=== PATIENT | female | born 1985 | race Caucasian/White ===

== ENCOUNTER → 2020-04-14 09:53 | Outpatient (BNVA) | payer OTHER, SELFPAY | PROVIDERS: PCP Internal Medicine; Visit Provider Physician Assistant | DX: Z76.89 Persons encountering health services in other specified circumstances (principal) ==

== ENCOUNTER → 2020-04-20 08:57 | Outpatient (BNVA) | payer OTHER, SELFPAY | PROVIDERS: PCP Internal Medicine; Visit Provider Physician Assistant | DX: Z76.89 Persons encountering health services in other specified circumstances (principal) ==

== ENCOUNTER → 2020-04-25 12:42 | Outpatient (BNVA) | payer OTHER, SELFPAY | PROVIDERS: PCP Internal Medicine; Visit Provider Dietitian, Registered | DX: Z76.89 Persons encountering health services in other specified circumstances (principal) ==

== ENCOUNTER → 2020-04-27 08:12 | Outpatient (BNVA) | payer OTHER, SELFPAY | PROVIDERS: PCP Internal Medicine; Visit Provider Surgery | DX: Z76.89 Persons encountering health services in other specified circumstances (principal) ==

== ENCOUNTER 2020-04-28 11:07 | Outpatient (REF) | payer OTHER, SELFPAY ==
[2020-04-28 12:23] LABS: MANUAL DIFF FLAG NO
[2020-04-28 12:30] LABS: Basophils Absolute Auto 0.1 X10*3/uL (0.0-0.2); Basophils Percent Auto 1.2 % (0-2); Eosinophils Absolute Auto 0.2 X10*3/uL (0.0-0.4); Eosinophils Percent Auto 3.2 % (0-4); Hematocrit 32.9 % (37-47); Imm Gran Abs Auto 0.01 X10*3/uL (0.00-0.03); Imm Gran Pct Auto 0.2 % (0.0-0.4); Lymphocytes Absolute Auto 1.9 X10*3/uL (1.2-4.9); Lymphocytes Percent Auto 37.5 % (20-40); Mean Corpuscular HGB Conc 30.4 g/dl (31.0-35.0); Mean Corpuscular Hemoglobin 22.5 pg (27.0-33.0); Mean Corpuscular Volume 73.9 fL (80-98); Mean Platelet Volume 9.9 fL (9.4-12.3); Monocytes Absolute Auto 0.4 X10*3/uL (0.1-1.2); Monocytes Percent Auto 7.8 % (2-11); Neutrophils Absolute Auto 2.5 X10*3/uL (2.0-8.3); Neutrophils Percent Auto 50.1 % (45-73); Platelet Count 390 X10*3/uL (160-400); Red Blood Count 4.45 X10*6/uL (4.20-5.50); Red Cell Distribution Width 16.3 % (11.0-16.0)
[2020-04-28 12:35] LABS: INTERNATIONAL NORM RATIO 1.1 (0.9-1.1); Prothrombin Time 13.4 SEC (10.8-13.0)
[2020-04-28 12:38] LABS: Partial Thromboplastin Time 34.6 SEC (24.1-38.0)
[2020-04-28 13:01] LABS: Alanine Aminotransferase 6 U/L (0-31); Albumin Level 4.2 g/dL (3.5-5.0); Alkaline Phosphatase 79 U/L (39-117); Anion Gap 13 (12-20); Aspartate Amino Transferase 11 U/L (5-31); Bilirubin Total 0.8 mg/dL (0.0-1.0); Blood Urea Nitrogen 8 mg/dL (9-16); C Reactive Protein 0.61 mg/dL (< or = 0.50); Calcium 8.8 mg/dL (8.4-10.2); Carbon Dioxide 25 mmol/L (22-29); Chloride 104 mmol/L (96-108); Cholesterol 187 mg/dL; Estimated Glomerular Filt Rate > 60; Glucose Random 77 mg/dL (60-115); HDL Cholesterol 46 mg/dL; LDL Cholesterol Calculated 128 mg/dl; Potassium 4.3 mmol/l (3.3-5.1); Sodium 138 mmol/L (135-145); Total Protein 7.5 g/dL (6.5-8.0); Triglycerides 65 mg/dL
[2020-04-28 13:13] LABS: Estimated Average Glucose 114 mg/dL; Hemoglobin A1c % 5.6 %
[2020-04-28 13:22] LABS: TSH reflex Free T4 0.87 mIU/mL (0.32-4.0)
[2020-05-02 14:56] LABS: Insulin Level Total 8.4 uIU/mL
== END 2020-04-28 11:08 | disposition home or self-care (01) ==
LOC: HO.LAB 11:07
PROVIDERS: PCP Internal Medicine; Visit Provider Surgery
DX: E66.9 Obesity, unspecified (principal); R73.03 Prediabetes; Z68.39 Body mass index [BMI] 39.0-39.9, adult
CPT/HCPCS: 36415; 80053; 80061; 83036; 83525; 84443; 85025; 85610; 85730; 86140

== ENCOUNTER → 2020-04-29 11:55 | Outpatient (BNVA) | payer OTHER, SELFPAY | PROVIDERS: PCP Internal Medicine; Visit Provider Physician Assistant | DX: Z76.89 Persons encountering health services in other specified circumstances (principal) ==

== ENCOUNTER 2020-05-05 05:42 | Inpatient (IN) | payer OTHER, SELFPAY ==
[2020-04-29 09:03] VITALS: BMI 38.1
--- NOTE | 2020-05-02 15:09 | HO.ANESPROP2 ---
Documented by User: Shelly Early 05/02/20 15:15 HPI - Anesthesia Eval Consult details Narrative: 35yo F for lap sleeve gastrectomy PMFSH Past Medical History Medical History Anemia Obesity Prediabetes Family History Family History (Updated 04/26/20 @ 10:40 by [place] Brooke [facility]) Father No problems noted. Mother HTN (hypertension) Anemia Brother No problems noted. Sister No problems noted. Sister No problems noted. Daughter No problems noted. Daughter No problems noted. 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 If so, by whom?: No [facility] Practices: no barriers to surgery or hospitalization Advance Directives: No Advance Directives Information Provided: No Advance Directives on File: No Recently lost weight without trying: No Meds Allergies Allergy/AdvReac Type Severity Reaction Status Date / Time Sulfa Allergy Mild itching Uncoded 05/05/20 06:22 Home Medications Medication Instructions Recorded Confirmed Type acetaminophen 650 mg PO Q6H PRN 04/29/20 04/29/20 History ibuprofen 600 mg PO QID PRN 04/29/20 04/29/20 History Exam Exam Date and Time: May 02, 2020 1509 Height,Weight and Vital Signs: Height 5 ft 5 in Weight 103.873 kg Pertinent Lab Results Pertinent Lab Results: Laboratory Tests 04/28/20 11:33 Blood Type A Positive Antibody Screen NEGATIVE Laboratory Tests 04/28/20 04/28/20 04/28/20 11:33 11:33 11:33 WBC 5.0 Hgb 10.0 L Hct 32.9 L Plt Count 390 PT 13.4 H INR 1.1 APTT 34.6 Sodium 138 Potassium 4.3 Chloride 104 Carbon Dioxide 25 BUN 8 L Creatinine 0.91 Hemoglobin A1c % Total Bilirubin 0.8 AST 11 ALT 6 Alkaline Phosphatase 79 C-Reactive Protein 0.61 H Total Protein 7.5 Albumin 4.2 04/28/20 11:33 WBC Hgb Hct Plt Count PT INR APTT Sodium Potassium Chloride Carbon Dioxide BUN Creatinine Hemoglobin A1c % 5.6 Total Bilirubin AST ALT Alkaline Phosphatase C-Reactive Protein Total Protein Albumin Narrative Narrative: EKG 12/28/19: [id number]@65 Assessment and Plan Assessment Anesthesia Assessment: Chart Reviewed Documented by User: Yolande Celaya 05/05/20 07:34 [facility] Past Medical History Medical History Anemia Obesity Prediabetes Family History Family History (Updated 04/26/20 @ 10:40 by [place] Brooke [facility]) Father No problems noted. Mother HTN (hypertension) Anemia Brother No problems noted. Sister No problems noted. Sister No problems noted. Daughter No problems noted. Daughter No problems noted. 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 If so, by whom?: No [facility] Practices: no barriers to surgery or hospitalization Advance Directives: No Advance Directives Information Provided: No Advance Directives on File: No Recently lost weight without trying: No Meds Allergies Allergy/AdvReac Type Severity Reaction Status Date / Time Sulfa Allergy Mild itching Uncoded 05/05/20 06:22 Home Medications Medication Instructions Recorded Confirmed Type acetaminophen 650 mg PO Q6H PRN 04/29/20 04/29/20 History ibuprofen 600 mg PO QID PRN 04/29/20 04/29/20 History Exam Height,Weight and Vital Signs: Vital Signs Temp Pulse Resp BP Pulse Ox 05/05/20 06:33 97.7 F 89 16 127/82 99 Airway Mallampati Class: II TM Dist: >3cm Neck ROM: Full Loose/Missing/Broken Teeth: No (Bliss intact) Heart: RRR Lungs: CTAB Assessment and Plan Assessment Anesthesia Assessment: Anesthesia Plan Discussed and Chart Reviewed Final Anesthetic Review NPO: Yes ASA Class: III Final Preanesthetic Review: No Changes in Pt Med Stat, Meds/Allgs Chart Reviewed and Consent Obtained/Reviewed Patient Risk: Intermediate Procedure Risk: Intermediate Anesthetic Plan Anesthetic Plan: GA Disposition: Standard PACU and Inp. Admit - Standard Bed
[2020-05-05] VITALS (18 sets, daily range): BP systolic 123–149; BP diastolic 68–89; PULSE 62–93; RESP 12–19; TEMP 36–36.5; O2SAT 94–100
--- NOTE | 2020-05-05 05:52 | MHC.SHP ---
Pre-Procedural Eval Section A The patient is an INPATIENT: Yes The History & Physical has been completed within 30 days and I have reviewed it.: Yes Section B Chief Complaint: S/p Sleeve gastrectomy Relevant Family History (Specify if Yes): No Relevant Social History: None Present Medications: see Short Stay Collaborative assessment Allergies: Allergies Allergy/AdvReac Type Severity Reaction Status Date / Time Sulfa Allergy Unknown itching Uncoded 12/14/19 00:00 Review of Systems Sugical H&P ROS: Negative: Constitution, Cardiovascular, Respiratory, Neurological, Psychiatric, Hem-Onc, Allergic/Immunologic, Gastrointestinal, Genitourinary, Musculoskeletal, Integumentary, Endocrine and Eyes/Ears/Nose/Throat Exam Surgical H&P Exam: Normal: HEENT, Normal: Heart, Normal: Lungs, Normal: Extremities, Normal: Abdomen, Normal: Skin and Normal: Neurological Plan Diagnosis/Plan: Unchanged Patient has been examined and remains a candidate for the planned procedure
[2020-05-05] MEDS: Lactated Ringers 1,000 ML 100 ML IVCONT ×2 (06:55→13:18)
[2020-05-05 07:02] LABS: SARS COV2 PCR INHOUSE NEGATIVE (Negative)
[2020-05-05] MEDS: Lactated Ringers 1,000 ML 999 ML IVCONT (07:30)
[2020-05-05] MEDS: ceFAZolin Sodium/Dextrose,Iso 2 GM/50 ML PIGGYBACK IV ×2 (07:30→13:23)
--- NOTE | 2020-05-05 09:58 | P.BOP_ITS ---
Brief Operative Note Date of procedure: 05/05/20 Pre-op diagnosis: Severe obesity with comorbidities Post-op diagnosis: same (& abdominal congenital adhesions) Procedure: INITIAL PATIENT BMI ON PRESENTATION AT OUR OFFICE: 43.76 kg/m2 LAST BMI BEFORE SURGERY: 39.3 kg/m2 COMORBIDITIES: Prediabetes, GERD, liver steatosis, knee pain The patient participated in an intensive weekly lifestyle intervention and exercise program during which the patient has lost between the initial office visit and the last preoperative visit 21.2 lbs, or 8.34% of initial actual body weight. The patient met the BMI-criteria for bariatric surgery based on the BMI on initial presentation. The patient should not be penalized for achieving such weight loss because it is not sustainable long-term without surgical intervention and it was achieved in preparation for bariatric surgery under my direction and based on my published research ([email or web address] and [email or web address]) that a 10% preoperative weight loss improves long-term weight loss after surgery and reduces perioperative complications. Insurance carriers such as [facility] have endorsed my recommendations and have included in their policies criteria to include a 10% preoperative weight loss requirement. PROCEDURE: Esophago-gastroscopy, laparoscopic lysis of adhesions, laparoscopic sleeve gastrectomy and laparoscopic gastropexy INDICATIONS: This is a 49 year-old female who was electively scheduled for laparoscopic, possibly open sleeve gastrectomy. The risks and complications of the procedure were discussed with the patient in advance, particularly the possibility of ; pulmonary embolism; staple line leak; bleeding; GERD; cardiac, pulmonary, or renal complications; as well as long-term problems such as insufficient weight loss, vitamin deficiency, strictures, or ulcers. The patient understood all the risks, and was in agreement to proceed with surgery. DESCRIPTION OF PROCEDURE: After informed consent was obtained from the patient, the patient was given preoperative antibiotics, and was transferred to the operating room. After successful induction of general anesthesia, pneumatic compressive devices were placed on both lower extremities. An upper endoscopy was performed next. The oropharynx and esophagus appeared to be within normal limits. There was no diaphragmatic hernia present consistent with the findings of the preoperative upper GI. The stomach was entered. Then after all fluid and air were suctioned and the stomach was fully decompressed, the scope was withdrawn and secured in the mid esophagus. The patient was then prepped and draped in the usual sterile manner, and abdominal access was established at the right upper quadrant with the Connie technique. A 12 mm blunt port was inserted, and the abdomen was insufflated with CO2 to a pressure of 15 mmHg. Under direct visualization, additional ports were placed, specifically two 5 mm Versi-step ports to the left upper quadrant, and a 5 mm Versi-Step port to the right upper quadrant. 1% lidocained plan was used to infiltrate all port sites as well as all fascia defects. Following that, the patient was placed in a steep reverse Trendelenburg position. An additional 5 mm port was placed to the right flank for the Mediflex retractor that was used to retract the left lobe of the liver. The gastro-esophageal fat pad was opened with the ultrasonic device (Thunderbeat, Olympus) and the anterior esophagus and hiatus were exposed. The angle of His was opened with the ultrasonic device the fundus of the stomach from any diaphragmatic and splenic attachments. I then opened the gastrocolic ligament between the transverse colon and the greater curvature of the stomach with the ultrasonic device to enter the lesser sac and facilitate the ligation of the short gastric vessels. I started at a mid-point along the greater curvature and using the Thunderbeat, all short gastric vessels were divided all the way to the angle of His until the left katie was completely dissected at its entirety. I then divided the gastro-colic ligament distally to a distance of about 3-4 cm proximal to the esophagus. There were extensive congenital adhesions between the pancreas and posterior gastric wall. Those were lysed completely with the ultrasonic device. Adhesiolysis took approximately 45 min to complete. The stomach was then divided transversely with one Endo EVELYN-45 purple load and five EVELYN-60 articulating orange loads using the AEON stapler and loads. Every effort was made that the gastric sleeve had a tubular shape and an even caliber throughout. Once the sleeve resection was completed, the staple line of the gastric sleeve was reinforced with Hemoclips. The resected stomach was retrieved without difficulty from the Connie port. A gastropexy was then performed in order to prevent postoperative GERD and partial gastric volvulus. Several interrupted 2.0 Surgidac sutures were placed between the sleeve's staple line and the previously divided greater omentum and gastro-colic ligament using the Endo-Stitch device. An upper endoscopy was performed. There was no narrowing at the GE junction. The scope was easily advanced all the way to the pylorus which was clearly visualized. There was no narrowing anywhere and the sleeve's caliber was even throughout. The sleeve's staple line was inspected and there was no evidence of ischemia, bleeding or dehiscence. At that point the gastroscope was withdrawn from the patient?s mouth while we were decompressing the bowel and the stomach from any remaining air. I looked into the lesser sac to see how the sleeve was situating and it was situating well. There was no bleeding from the staple line, spleen, or short gastric vessels. The Mediflex retractor was removed, and the undersurface of the liver was inspected and there was no bleeding. The patient was placed in supine position. I closed the fascial defect of the 12 mm port site with a figure of eight #1 Polysorb suture. Then 100 cc 0.25 % Marcaine plain with 10 mg of Dexamethasone were used to infiltrate the fascial closure as well as all skin incisions. At this point, the abdomen was deflated, all ports were removed under direct vision, and no bleeding was noted from any of the port sites. The skin incisions were irrigated with saline and were closed with 4-0 absorbable monofilament sutures. Steri-Strips and OpSites were used to cover all incisions. The patient was extubated and was transferred in stable condition to the recovery room for further care. I was present and performed all negron parts of the procedure. Ms. Godoy was the salon shampoo assistant. There were no residents to assist with this case. Please send copy of the operative report to Dr. Rogers. Todd Sullivan MD, PhD, FACS Surgeon: Luciano Sullivan MD Anesthesia: GETA, local and other (TAP block) Habilitative Interventionist: Arti Godoy Estimated blood loss (mL): 10 IV fluids (mL): 2,500 Urine output (mL): 0 (No Tony to record) Pathology: other (Stomach) Condition: stable Disposition: PACU
--- NOTE | 2020-05-05 10:09 | PM.PNGS ---
Subjective Subjective Interval history: Patient has mild incisional pain. Was able to ambulate and use the incentive spirometer. Did not have much fluids by mouth yet. Physical Exam Vital Signs: Vital Signs: Vital Signs Temp Pulse Resp BP Pulse Ox 05/05/20 10:02 84 16 149/89 H 100 05/05/20 09:57 68 16 144/89 H 100 05/05/20 09:52 72 16 134/80 05/05/20 09:47 96.9 F 79 12 126/68 100 05/05/20 06:33 97.7 F 89 16 127/82 99 Body Mass Index 38.1 GI: Inspection: Yes normal to inspection and Yes incision (clean, dry and intact) Extrem: Right lower extremity: normal to inspection (no calf tenderness) Left lower extremity: normal to inspection (no calf tenderness) Progress Note: A&P Assessment and plan (1) BMI 39.0-39.9,adult: Status: Acute (2) Prediabetes: Status: Acute (3) Obesity: Status: Acute Assessment and Plan: 35 year old female was admitted 05/05/20 with morbid obesity and comorbidities. Problem 1: s/p laparoscopic sleeve gastrectomy, gastropexy and lysis of adhesions Status: Doing well. Labs OK Plan: Will continue phase 1 bariatric diet and discharge later today. (4) S/P laparoscopic sleeve gastrectomy: Status: Acute (5) Congenital intra-abdominal adhesions: Status: Acute (6) Steatosis, liver: Status: Inactive (7) GERD (gastroesophageal reflux disease): Status: Acute (8) Knee pain: Status: Acute Fall Risk Details Current Medications: Current Medications Generic Name Dose Route Start Last Admin Trade Name Freq PRN Reason Stop Dose Admin Famotidine 20 mg 05/05/20 10:00 Famotidine/Pf 20 Mg/2 Ml Vial IVPUSH BID TAYLOR Fentanyl 25 mcg 05/05/20 07:56 Fentanyl Citrate/Pf 100 Mcg/2 Ml Vial IVPUSH Q5M PRN Pain, Moderate (Pain Scale 4-6 Hydromorphone HCl 0.25 mg 05/05/20 07:56 Hydromorphone Hcl 0.5 Mg/0.5 Ml Syringe IVPUSH Q5M PRN Pain, Severe (Pain Scale 7-10) Hydromorphone HCl 0.25 mg 05/05/20 09:46 Hydromorphone Hcl 0.5 Mg/0.5 Ml Syringe IVPUSH Q4H PRN Pain, Moderate (Pain Scale 4-6 Lactated Ringer's 1,000 mls @ 100 mls/hr 05/05/20 06:00 05/05/20 06:55 Lr IVCONT 100 mls/hr .Q10H TAYLOR Administration Promethazine HCl 6.25 mg/ 50.25 mls @ 201 mls/hr 05/05/20 07:56 Sodium Chloride IV ONCE PRN Nausea and Vomiting Lactated Ringer's 1,000 mls @ 150 mls/hr 05/05/20 10:00 Lr IVCONT .Q6H40M TAYLOR Cefazolin Sodium/Dextrose 2 gm in 50 mls @ 100 mls/hr 05/05/20 13:30 Ancef IV 05/05/20 13:59 POSTOP ONE Acetaminophen 1,000 mg in 100 mls @ 400 mls/hr 05/05/20 10:00 Ofirmev IV Q6H [facility] Metoclopramide HCl 10 mg 05/05/20 09:46 Metoclopramide Hcl 10 Mg/2 Ml Vial IVPUSH Q6H PRN Nausea Ondansetron HCl 4 mg 05/05/20 07:56 Ondansetron Hcl 4 Mg/2 Ml Vial IVPUSH ONCE PRN Nausea and Vomiting Ondansetron HCl 4 mg 05/05/20 10:00 Ondansetron Hcl 4 Mg/2 Ml Vial IVPUSH Q4H [facility] Sodium Chloride 3 ml 05/05/20 16:00 0.9 % Sodium Chloride Flush 3 Ml Syringe IVFLUSH QSHIFT [facility] Time Spent With Patient Time: Total time spent is greater than 50% in coordination of care (as documented) at patient's floor/unit and/or counseling patient: Time with patient: less than 15 minutes
[2020-05-05 11:05] LABS: Hemoglobin 9.3 g/dl (12.0-16.0)
[2020-05-05 11:28] LABS: Anion Gap 15 (12-20); Blood Urea Nitrogen 8 mg/dL (9-16); Calcium 7.9 mg/dL (8.4-10.2); Carbon Dioxide 24 mmol/L (22-29); Chloride 105 mmol/L (96-108); Creatinine Clr Calc Pharmacy 97.9; Estimated Glomerular Filt Rate > 60; Glucose Random 144 mg/dL (60-115); Potassium 3.8 mmol/l (3.3-5.1); Sodium 140 mmol/L (135-145)
[2020-05-05] MEDS: fentaNYL citrate/PF 100 MCG/2 ML VIAL 25 MCG IVPUSH ×2 (11:50→11:55)
[2020-05-05] MEDS: Famotidine/PF 20 MG/2 ML VIAL IVPUSH ×2 (11:58→21:50)
[2020-05-05] MEDS: ondansetron HCL 4 MG/2 ML VIAL IVPUSH ×3 (13:23→21:49)
[2020-05-05] MEDS: Lactated Ringers 1,000 ML 150 ML IVCONT ×2 (13:28→21:51)
[2020-05-06 03:42] VITALS: BP 126/77; PULSE 76; RESP 16; TEMP 35.9; O2SAT 98
[2020-05-06] MEDS: ondansetron HCL 4 MG/2 ML VIAL IVPUSH ×2 (05:52→10:44)
[2020-05-06] MEDS: Lactated Ringers 1,000 ML 150 ML IVCONT (05:55)
[2020-05-06 06:17] LABS: MANUAL DIFF FLAG NO
[2020-05-06 06:39] LABS: Basophils Percent Auto 0.2 % (0-2); Imm Gran Abs Auto 0.03 X10*3/uL (0.00-0.03); Imm Gran Pct Auto 0.4 % (0.0-0.4); Lymphocytes Absolute Auto 1.6 X10*3/uL (1.2-4.9); Mean Corpuscular HGB Conc 29.6 g/dl (31.0-35.0); Mean Corpuscular Hemoglobin 22.2 pg (27.0-33.0); Mean Platelet Volume 9.9 fL (9.4-12.3); Monocytes Absolute Auto 0.6 X10*3/uL (0.1-1.2); Monocytes Percent Auto 7.5 % (2-11); Neutrophils Absolute Auto 6.2 X10*3/uL (2.0-8.3); Neutrophils Percent Auto 72.9 % (45-73); Platelet Count 326 X10*3/uL (160-400); Red Cell Distribution Width 16.5 % (11.0-16.0); White Blood Count 8.6 X10*3/uL (4.8-10.8)
[2020-05-06 06:55] LABS: Anion Gap 13 (12-20); Blood Urea Nitrogen 7 mg/dL (9-16); Calcium 8.1 mg/dL (8.4-10.2); Carbon Dioxide 24 mmol/L (22-29); Chloride 108 mmol/L (96-108); Creatinine Clr Calc Pharmacy 115.1; Estimated Glomerular Filt Rate > 60; Glucose Random 90 mg/dL (60-115); Potassium 4.4 mmol/l (3.3-5.1); Sodium 141 mmol/L (135-145)
[2020-05-06 07:29] VITALS: BP 125/70; PULSE 65; RESP 17; TEMP 36; O2SAT 100
[2020-05-06] MEDS: Famotidine/PF 20 MG/2 ML VIAL IVPUSH (10:44)
[2020-05-06 11:27] VITALS: BP 117/69; PULSE 62; RESP 19; TEMP 36.3; O2SAT 100
--- NOTE | 2020-05-06 12:26 | MHC.CM.PN ---
NURSE LANGUAGE TEACHER NOTE - ELECTRONICDI RECORD REVIEWED ALONG WITH CASE DISCUSSED WITH TUCKER GLOVER . 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
--- NOTE | 2020-05-06 13:44 | HO.POSTANES ---
Post Anesthesia Evaluation Post Anesthesia Evaluation Vital Signs: Vital Signs Temp Pulse Resp BP Pulse Ox 05/06/20 11:27 97.3 F 62 19 117/69 100 05/06/20 07:29 96.8 F 65 17 125/70 100 05/06/20 03:42 96.7 F L 76 16 126/77 98 Anesthesia: General Endotracheal-GETA Mental Status: Awake Pain Control: Satisfactory Nausea/Vomiting: None Hydration: Adequate Anesthesia-Related Issues: No Anes. Related Issues
--- NOTE | 2020-06-29 13:23 | PM.DS ---
DS: Providers Provider Date of admission: 05/05/20 05:42 Primary care physician: Nahed Rogers MD DS: Diagnosis Discharge Diagnosis (1) BMI 39.0-39.9,adult: Status: Acute (2) Prediabetes: Status: Acute (3) Obesity: Status: Acute (4) S/P laparoscopic sleeve gastrectomy: Status: Acute Problem details: 05/05/2020 (5) Congenital intra-abdominal adhesions: Status: Acute (6) Steatosis, liver: Status: Inactive (7) GERD (gastroesophageal reflux disease): Status: Acute (8) Knee pain: Status: Acute DS: Medications Discharge Medications Home Medications: Home Medications Medication Instructions Recorded Confirmed acetaminophen 650 mg PO Q6H PRN 04/29/20 04/29/20 Previous Rx's Medication Instructions Recorded ondansetron HCl 4 mg tablet 4 mg PO Q8H PRN #30 tab 04/27/20 pantoprazole 40 mg tablet,delayed 40 mg PO DAILY #30 tab 04/27/20 release sucralfate 100 mg/mL oral 10 ml PO BID #420 ml 04/27/20 suspension DS: Summary Time Spent with Patient Time attestation: Total time spent providing and/or coordinating discharge services: Physical Exam Vital Signs: Vital Signs: Last Vital Signs Temp 97.3 F 05/06/20 11:27 Pulse 62 05/06/20 11:27 Resp 19 05/06/20 11:27 BP 117/69 05/06/20 11:27 Pulse Ox 100 05/06/20 11:27 Body Mass Index 38.1 DS: Data Data Completed and Pending Completed studies during hospitalization [Text1]: Pending at discharge 05/05/20 08:34 Surgical [PTH] Routine Procedures Excision of Stomach, Percutaneous Endoscopic Approach, Vertical (05/05/20) Release Peritoneum, Percutaneous Endoscopic Approach (05/05/20) Labs on day of discharge: 04/28/20 11:33 Type and Screen Routine 05/05/20 05:40 SARS COV2 PCR INHOUSE Stat 05/05/20 05:53 Acetaminophen [Ofirmev] 1,000 mg in 100 ml IVPB PREOP 05/05/20 06:00 Lactated Ringers [Lr] 1,000 ml IVCONT 100 mls/hr 05/05/20 06:06 Acetaminophen [Ofirmev] 1,000 mg in 100 ml IV PREOP 05/05/20 07:08 dexAMETHasone Sod Phosphate/PF [Decadron] 10 mg .ROUTE .STK-MED ONE 05/05/20 07:09 Bupivacaine MPF 0.25 % [Sensorcaine-MPF 0.25% 10 ML] 10 ml .ROUTE .STK-MED ONE Lidocaine HCl 1 % MPF [Xylocaine 1 % MPF] 5 ml .ROUTE .STK-MED ONE 05/05/20 07:18 Ketamine HCl/NS 50 mg IVPUSH .STK-MED ONE Lidocaine HCl 2 % MPF [Xylocaine 2 % MPF] 5 ml .ROUTE .STK-MED ONE Midazolam HCl/PF [Versed] 2 mg IVPUSH .STK-MED ONE Rocuronium [place] [Zemuron] 100 mg IV .STK-MED ONE Succinylcholine Chloride [Quelicin] 100 mg IVPUSH .STK-MED ONE fentaNYL citrate/PF [Sublimaze] 50 mcg .ROUTE .STK-MED ONE propofoL [Diprivan] 200 mg IVPUSH .STK-MED ONE 05/05/20 07:25 ceFAZolin Sodium/Dextrose,Iso [Ancef] 2 gm in 50 ml IV PREOP 05/05/20 07:29 ceFAZolin Sodium/Dextrose,Iso [Ancef] 2 gm in 50 ml .ROUTE As directed 05/05/20 07:30 Lactated Ringers [Lr] 1,000 ml IVCONT 999 mls/hr 05/05/20 07:35 Continuous pulse oximetry CONT Vital Signs Q1H Vital Signs Q5MIN 05/05/20 07:37 Oxygen administration Nasal Cannula 2 lpm 05/05/20 07:46 dexAMETHasone sod phosphate [Decadron] 4 mg .ROUTE .STK-MED ONE ondansetron HCL [Zofran] 4 mg .ROUTE .STK-MED ONE 05/05/20 07:56 HYDROmorphone HCl [Dilaudid] 0.25 mg IVPUSH Q5M PRN Promethazine HCL [Phenergan] 6.25 mg 0.9 % Sodium Chloride [Ns] 50 ml IV ONCE fentaNYL citrate/PF [Sublimaze] 25 mcg IVPUSH Q5M PRN ondansetron HCL [Zofran] 4 mg IVPUSH ONCE PRN 05/05/20 07:58 propofoL [Diprivan] 200 mg IVPUSH .STK-MED ONE 05/05/20 08:09 HYDROmorphone HCl [Dilaudid] 2 mg .ROUTE .STK-MED ONE 05/05/20 08:24 Phenylephrine HCL 1,000 mcg IVPUSH .STK-MED ONE 05/05/20 08:34 Surgical [PTH] Routine 05/05/20 08:35 Sugammadex Sodium [Bridion] 200 mg IVPUSH .STK-MED ONE 05/05/20 09:46 Ambulate Q4H WHILE AWAKE Compression Therapy QSHIFT Head of bed elevation DIRECTED Incentive Spirometry Q1HR WHILE AWAKE Intake and Output Q4HR Code Status Routine HYDROmorphone HCl [Dilaudid] 0.25 mg IVPUSH Q4H PRN Metoclopramide HCl [Reglan] 10 mg IVPUSH Q6H PRN 05/05/20 09:47 Vital Signs Q4H 05/05/20 09:48 Apply Abdominal Binder TOLERATED 05/05/20 Breakfast NPO Diet Acetaminophen [Ofirmev] 1,000 mg in 100 ml IV Q6H Famotidine/PF [Pepcid/PF] 20 mg IVPUSH BID Lactated Ringers [Lr] 1,000 ml IVCONT 150 mls/hr ondansetron HCL [Zofran] 4 mg IVPUSH Q4H 05/05/20 10:50 Basic Metabolic Panel Stat Hemoglobin and Hematocrit Stat 05/05/20 11:48 Famotidine/PF [Pepcid/PF] 20 mg IVPUSH .[facility] ONE fentaNYL citrate/PF [Sublimaze] 100 mcg .ROUTE .STK-MED ONE 05/05/20 13:30 ceFAZolin Sodium/Dextrose,Iso [Ancef] 2 gm in 50 ml IV POSTOP 05/05/20 16:00 0.9 % Sodium Chloride Flush [NS Flush] 3 ml IVFLUSH QSHIFT 05/06/20 06:00 Basic Metabolic Panel DAILY@0600 Complete Blood Count Auto Diff DAILY@0600 Laboratory Last Values WBC 8.6 X10*3/uL (4.8-10.8) 05/06/20 06:00 RBC 3.60 X10*6/uL (4.20-5.50) L 05/06/20 06:00 Hgb 8.0 g/dl (12.0-16.0) L 05/06/20 06:00 Hct 27.0 % (37-47) L 05/06/20 06:00 MCV 75.0 fL (80-98) L 05/06/20 06:00 MCH 22.2 pg (27.0-33.0) L 05/06/20 06:00 MCHC 29.6 g/dl (31.0-35.0) L 05/06/20 06:00 RDW 16.5 % (11.0-16.0) H 05/06/20 06:00 Plt Count 326 X10*3/uL (160-400) 05/06/20 06:00 MPV 9.9 fL (9.4-12.3) 05/06/20 06:00 Immature Gran % (Auto) 0.4 % (0.0-0.4) 05/06/20 06:00 Neut % (Auto) 72.9 % (45-73) 05/06/20 06:00 Lymph % (Auto) 19.0 % (20-40) L 05/06/20 06:00 [place] % (Auto) 7.5 % (2-11) 05/06/20 06:00 Eos % (Auto) 0.0 % (0-4) 05/06/20 06:00 Baso % (Auto) 0.2 % (0-2) 05/06/20 06:00 Lymph # (Auto) 1.6 X10*3/uL (1.2-4.9) 05/06/20 06:00 [place] # (Auto) 0.6 X10*3/uL (0.1-1.2) 05/06/20 06:00 Eos # (Auto) 0.0 X10*3/uL (0.0-0.4) 05/06/20 06:00 Baso # (Auto) 0.0 X10*3/uL (0.0-0.2) 05/06/20 06:00 Abs Immat Gran (auto) 0.03 X10*3/uL (0.00-0.03) 05/06/20 06:00 Absolute Neuts (auto) 6.2 X10*3/uL (2.0-8.3) 05/06/20 06:00 Absolute Nucleated RBC 0.000 X10*3/uL (0.0-0.012) 05/06/20 06:00 Nucleated RBC % (auto) 0.0 /100WBC (0.0-0.2) 05/06/20 06:00 Sodium 141 mmol/L (135-145) 05/06/20 06:00 Potassium 4.4 mmol/l (3.3-5.1) 05/06/20 06:00 Chloride 108 mmol/L (96-108) 05/06/20 06:00 Carbon Dioxide 24 mmol/L (22-29) 05/06/20 06:00 Anion Gap 13 (12-20) 05/06/20 06:00 BUN 7 mg/dL (9-16) L 05/06/20 06:00 Creatinine 0.80 mg/dL (0.5-1.4) 05/06/20 06:00 Estim Creat Clear Calc 115.1 05/06/20 06:00 Estimated GFR > 60 05/06/20 06:00 Random Glucose 90 mg/dL (60-115) D 05/06/20 06:00 Calcium 8.1 mg/dL (8.4-10.2) L 05/06/20 06:00 Coronavirus (PCR) NEGATIVE (Negative) 05/05/20 05:40 Blood Type A Positive 04/28/20 11:33 Antibody Screen NEGATIVE 04/28/20 11:33 Discharge Plan Discharge Anticipated Discharge Date/Time: 05/06/20 11:54 Patient Disposition: Home, Self-Care Referrals: Nahed Rogers MD [Primary Care Provider] - Discharge Medications: Continued acetaminophen 325 mg Tablet 650 mg PO Q6H PRN (Reason: Pain) RF: 0 ondansetron HCl [Zofran] 4 mg tablet 4 mg PO Q8H PRN (Reason: nausea and vomiting) Qty: 30 RF: 0 pantoprazole 40 mg tablet,delayed release (DR/EC) 40 mg PO DAILY Qty: 30 RF: 2 sucralfate 100 mg/mL suspension 10 ml PO BID Qty: 420 RF: 2 Discontinued ibuprofen 600 mg Tablet 600 mg PO QID PRN (Reason: Pain) RF: 0 Golytely 227.1-21.5-6.36 gram powder in packet 240 ml PO Q10M Qty: 1 RF: 0 Discharge Orders: Discharge Order (Routine); Ordered 05/06/20 Ordered By: Luciano Sullivan Diet: other Activity on Discharge: no baths Discharge Date/Time: 05/06/20 13:16 Activity Restrictions/Additional Instructions: ADMITTING DIAGNOSIS: morbid obesity, pre diabetes DISCHARGE DIAGNOSIS: same, s/p laparoscopic sleeve gastrectomy PAST SURGICAL HISTORY: section, oophorectomy PROCEDURE: upper endoscopy, laparoscopic sleeve gastrectomy DISCHARGE SUMMARY: History of Present Illness: The patient is a 35 year-old woman with a BMI of 42.3 kg/m2 and associated co-morbidities as described above. The patient had extensive work-up,lost 21.2 lbs preoperatively and was electively scheduled for laparoscopic, possible open sleeve gastrectomy and gastropexy. Risks and complications of the surgery were discussed with the patient in advance, particularly the possibility of , pulmonary embolism, anastomotic leak, bleeding, bowel injury, GERD, cardiac, renal or pulmonary complications. The patient understood all the risks and wasin agreement with the surgical plan. Hospital Course: The patient underwent an uneventful laparoscopic sleeve gastrectomy with gastropexy the day of admission. Postoperatively, the patient was transferred to the surgical floor and hemoglobin the first 8 hours after surgery was 9.3 mg/dl. The patient was on IV Acetaminophen and IV dilaudid for pain control. Patient was started on bariatric phase 1 diet POD #0. On postoperative day one, the patient was feeling well without nausea, vomiting, fevers, or tachycardia. The patient had some mild incisional pain. The abdomen was soft. Follow-up hemoglobin was 8.0 mg/dl. The white count was 8.6 with 27% neutrophils, the creatinine 0.8 mg/dl was and the potassium 4.4mmol/lt. On the morning of postoperative day one, the patient was continued on 1 ounce of water or ice every half hour. During the first day, the patient did fairly well, having some incisional pain, but able to ambulate adequately and to tolerate liquids well. Since the patient is doing well, we decided that the patient was ready to be discharged. The patient was given instructions to follow-up with me next week and to call my office for any fever over 101, persistent abdominal pain, nausea, vomiting, GERD, change in the color of the [place] fluid, symptoms of DVT such as calf tenderness, or leg swelling, or pulmonary embolism such as chest pain or shortness of breath. The patient was also instructed to drink 40-60 ounces of liquids per day using the 1-ounce cups. The patient was given prescription for Tylenol for pain, Zofran prn for nausea, and pantoprazole and carafate. The patient was encouraged to ambulate and use the incentive spirometer. The patient was allowed to shower, but no baths, and encouraged to stay active at home. All of these instructions were given to the patient You are being discharged home on bariatric diet phase 1. Continue this today and start bariatric phase 2 tomorrow morning. Follow all instructions in the bariatric hand book and call with any questions. INSTRUCTIONS No lifting, sexual relations, tub baths or vigorous exercise, do not restart until told to do so by Dr Sullivan. No alcohol, tobacco or caffeine products.personally. All questions were answered and the patient understood all instructions, the instructions were also given to the patient in print. Visit Report Forms: Patient Portal Discharge page Care Plan Goals: weight loss Health Concerns: morbid obesity Plan of Treatment: see discharge instructions
== END 2020-05-06 13:16 | disposition home or self-care (01) | DRG 403 ==
LOC: HO.SSSA 10:04 → HO.S3 12:17
PROVIDERS: Physician Assistant; Admitting Provider Surgery; PCP Internal Medicine; Visit Provider Surgery
PROC: 0DB64Z3 Excision of Stomach, Percutaneous Endoscopic Approach, Vertical (ICD-10-PCS; CPT 43845; principal; 2020-05-05 07:30)
DX: E66.01 Morbid (severe) obesity due to excess calories (principal); K21.9 Gastro-esophageal reflux disease without esophagitis; K66.0 Peritoneal adhesions (postprocedural) (postinfection); Z68.38 Body mass index [BMI] 38.0-38.9, adult; R73.03 Prediabetes; Z20.828 Contact with and (suspected) exposure to other viral communicable diseases; Z88.2 Allergy status to sulfonamides
CPT/HCPCS: 36415; 80048; 85014; 85018; 85025; 86850; 86900; 86901; 87635; 88307; 88342; 99024; A4649; J0131; J0330; J0690; J1100; J1170; J2250; J2370; J2405; J3010

== ENCOUNTER → 2020-05-13 09:48 | Outpatient (BNVA) | payer OTHER, SELFPAY | PROVIDERS: PCP Internal Medicine; Visit Provider Surgery | DX: Z76.89 Persons encountering health services in other specified circumstances (principal) ==

== ENCOUNTER → 2020-06-13 08:01 | Outpatient (BNVA) | payer OTHER, SELFPAY | PROVIDERS: PCP Internal Medicine; Referring Provider Internal Medicine; Visit Provider Surgery | DX: Z76.89 Persons encountering health services in other specified circumstances (principal) ==

== ENCOUNTER → 2020-06-29 07:44 | Outpatient (BNVA) | payer OTHER, SELFPAY | PROVIDERS: PCP Internal Medicine; Visit Provider Surgery | DX: Z76.89 Persons encountering health services in other specified circumstances (principal) ==

== ENCOUNTER → 2020-07-27 08:04 | Outpatient (BNVA) | payer OTHER, SELFPAY | PROVIDERS: PCP Internal Medicine; Visit Provider Surgery ==

== ENCOUNTER 2024-09-15 09:28 | Outpatient (AMB) | payer OTHER, SELFPAY ==
--- NOTE | 2024-09-15 09:34 | MHC.OFFVISWM ---
VS Expanded 09/15/24 09:36 BP 132/72 Blood Pressure Location Lt brachial Blood Pressure Position Sitting Pulse 90 Pulse Source Pulse Oximeter Temp 98.2 F Temperature Source Temporal Artery Scan Pulse Oximetry 100 Oxygen Delivery Method Room Air Height 5 ft 5 in Weight 189 lb 9.6 oz BMI 31.5 Body Fat % 38.1 Body Fat Mass 72.4 Fat Free Mass 117.2 Visceral Fat Rating 8.0 Body Water % 44.2 Body Water Mass 83.8 Muscle Mass/Score 111.4 Basal Metabolic Rate/Score 1,616 Intake Visit Reasons: (OV) PO LSG 05/05/20 [place] Required: No Allergies Sulfa Allergy (Mild, Uncoded 05/13/20 10:14) itching Medication List - Last Reconciled 09/15/24 by MAGNOLIA Araujo No Known Home Meds HPI Comments Details: This?a?39?yo female who is s/p LSG without hiatal hernia repair on?05/05/2020. Presents for 4 year 5 month post op visit. She was last seen in the office for her 3 month postop appointment in 07/27/2019. Weight today is 189.6 pounds, with a BMI of 31.6. There has been a 64.6 pound weight loss,(initial weight 254.2 pounds) since starting the program in 06/26/2019 reflecting a 25.4 % total body weight loss and a weight loss of 38.7 pounds since surgery (operative weight 228.3 pounds) reflecting a 16.9% TBWL since surgery. No complaints of nausea, emesis, abdominal pain or reflux. Reports infrequent but normal bowel movements every 2 days and uses fiber regularly. She states that she has not been seen in the office in several years as she had been going through some personal issues. She is excited to return to the office and get back on track to achieving a healthy weight and healthy lifestyle. She does report getting an intermittent rash to the periumbilical area as well as under the abdominal pannus, above the pubic area. She has treated this with increased hygiene such as showering, barriers with clothing. The rash, when it does occur, causes pain and itching and odor. This is very difficult for her and she is upset by this. We will prescribe antifungal cream to be used as needed. She does state that she would have a rash more commonly in the warmer months or if she visits friends and family in [facility] as it is much warmer there. She states that she would get a rash perhaps 1-2 times per month with resolution in between however recurrence. Present meal plan includes: nothing formal 32 oz water, ? Exercise routine includes: walk outside, not tracking calories could join a gym, had PF membership Any post op complications: none RACHID: never DM: never HTN: never Hyperlipidemia: never GERD:?0-5 scale ??0 = no symptoms ??1 = symptoms noticeable but not bothersome 2 =symptoms bothersome but not daily ? 3 = symptoms bothersome and daily 4 = symptoms affect daily activities 5 = symptoms are incapacitating, unable to do daily activities ? How bad is the heartburn: 0 ? Heartburn while lying down: 0 ? Heartburn when standing up: 0 ? Heartburn after meals: 0 ? Does heartburn change your diet: 0 ? Does heartburn wake you up from sleep: 0 ? Do you have difficulty swallowin ? Do you have pain with swallowin ? If you take medicine for your reflux, does this affect your daily life: 0 Satisfaction with present condition - satisfied or not satisfied: dissatisfied [facility] Medical History Knee pain GERD (gastroesophageal reflux disease) Steatosis, liver Anemia Prediabetes Surgical History S/P laparoscopic sleeve gastrectomy Obesity H/O removal of cyst Hx of section Family History Father No problems noted. Mother HTN (hypertension) Anemia Brother No problems noted. Sister No problems noted. Sister No problems noted. Daughter No problems noted. Daughter No problems noted. 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 Do you presently have visiting nurse or other home services: No Alcohol intake: never Patient Tobacco Use Status: Never used Tobacco Second Hand Smoke Exposure: No service: No Current occupational status: employed Physical Exam Vital Signs: Last Vital Signs Temp 98.2 F 09/15/24 09:36 Pulse 90 09/15/24 09:36 BP 132/72 09/15/24 09:36 Pulse Ox 100 09/15/24 09:36 Oxygen Delivery Method Room Air 09/15/24 09:36 Const General: cooperative and no acute distress Orientation/consciousness: patient oriented x3 Resp Effort & Inspection: normal respiratory effort Auscultation: clear to auscultation bilaterally Cardio Rate: regular rate Rhythm: regular rhythm GI Inspection: Yes normal to inspection and Yes incision (well healed) Palpation (GI): Soft to palpation and no masses Neuro General: patient oriented x3 Assessment & Plan Assessment & Plan (1) S/P laparoscopic sleeve gastrectomy: Comment: 05/05/2020 Code(s): Z98.84 - Bariatric surgery status Category: Surgical Plan: Patient has not been seen in several years. We will start her on the right BMI hussein. she was additionally given information regarding exercise. We will check 4 year postop labs. She was encouraged to take multivitamin. She was given my cell phone number and encouraged to text weight weekly. Encouraged to by body composition scale. Text with any questions or concerns. We will have her follow-up in 4-6 weeks. (2) Excess skin: Code(s): L98.7 - Excessive and redundant skin and subcutaneous tissue Category: Medical Plan: Given weight loss, patient has had skin rashes in the past. She did show me a picture on her cell phone, this seemed most consistently with a dermatomycosis. We will prescribe antifungal cream and monitor closely. She likely is going to need medically necessary skin removal surgery of the abdomen. Orders: Orders Hemoglobin A1c Today D64.9 - Anemia, unspecified, E66.9 - Obesity, unspecified, Z98.84 - Bariatric surgery status Lipid Panel Today D64.9 - Anemia, unspecified, E66.9 - Obesity, unspecified, Z98.84 - Bariatric surgery status IRON PROFILE Today D64.9 - Anemia, unspecified, E66.9 - Obesity, unspecified, Z98.84 - Bariatric surgery status Comprehensive Met. Panel Today D64.9 - Anemia, unspecified, E66.9 - Obesity, unspecified, Z98.84 - Bariatric surgery status C Reactive Protein Today D64.9 - Anemia, unspecified, E66.9 - Obesity, unspecified, Z98.84 - Bariatric surgery status Vitamin A Today D64.9 - Anemia, unspecified, E66.9 - Obesity, unspecified, Z98.84 - Bariatric surgery status Vitamin D 25-OH Total Today D64.9 - Anemia, unspecified, E66.9 - Obesity, unspecified, Z98.84 - Bariatric surgery status Insulin Today D64.9 - Anemia, unspecified, E66.9 - Obesity, unspecified, Z98.84 - Bariatric surgery status Complete Blood Count Auto Diff Today D64.9 - Anemia, unspecified, E66.9 - Obesity, unspecified, Z98.84 - Bariatric surgery status Vitamin B12 and Folate Today D64.9 - Anemia, unspecified, E66.9 - Obesity, unspecified, Z98.84 - Bariatric surgery status Zinc Today D64.9 - Anemia, unspecified, E66.9 - Obesity, unspecified, Z98.84 - Bariatric surgery status Vitamin B1 Today D64.9 - Anemia, unspecified, E66.9 - Obesity, unspecified, Z98.84 - Bariatric surgery status TSH reflex Free T4 Today D64.9 - Anemia, unspecified, E66.9 - Obesity, unspecified, Z98.84 - Bariatric surgery status Ferritin Today D64.9 - Anemia, unspecified, E66.9 - Obesity, unspecified, Z98.84 - Bariatric surgery status Medications: New clotrimazole 1% (Antifungal (clotrimazole)) 1 appl topical BID 45 grams 2RF
[2024-09-15 09:36] VITALS: BP 132/72; PULSE 90; TEMP 36.8; O2SAT 100; BMI 31.5
--- OUTSIDE RECORDS SUMMARY | 2024-09-15 10:41 | XMS_ITS | Clinical Summary ---
Author Organization [facility] Address [address] [place] [address] Care Team Providers Care Veneer Sheet Repairer Name Role Phone Billie Moreno DMD Primary Care Provider [phone] Source Comments PLEASE NOTE, if this patient is a minor, it may be UNLAWFUL to discuss sensitive information that is contained in these records (such as FAMILY PLANNING, MENTAL HEALTH or SUBSTANCE ABUSE) with the minor patient's parent or other person without the patient's specific authorization.[facility] Allergies Active Allergy Reactions Criticality Noted Date Comments Sulfa (Sulfonamide Antibiotics) Hives,Swelling 02/06/2016 Years agp Medications ibuprofen 600 mg tablet Take 1 Tab by mouth 4 (four) times daily as needed for pain 20 Tab 05/26/2019 Active clindamycin HCL (CLEOCIN) 300 mg capsuleIndicati ons:Tooth infection Take 1 Capsule by mouth 3 (three) times daily 21 Capsule 10/31/2020 Active clindamycin HCL (CLEOCIN) 300 mg capsuleIndicati ons:Tooth infection Take 1 Capsule by mouth 3 (three) times daily 21 Capsule 10/31/2020 Active ibuprofen 800 mg tabletIndicatio ns:Tooth infection Take 1 Tablet by mouth 3 (three) times daily as needed for pain 30 Tablet 10/31/2020 Active ibuprofen 800 mg tabletIndicatio ns:Tooth infection Take 1 Tablet by mouth 3 (three) times daily as needed for pain 30 Tablet 10/31/2020 Active predniSONE (DELTASONE) 10 mg tabletIndicatio ns:Vaginal pruritus Take 1 Tablet by mouth once daily 5 Tablet 07/29/2021 Active Active Problems No known active problems Immunizations Name Administration Dates Next Due Flu, Preservative Free 03/25/2023,04/04/2022 Influenza (FLUBLOK),recombinant,injectable,preservati ve Free 03/30/2024 Moderna COVID-19 (Spikevax), Mrna, Lnp-s, Pf, 50 Mcg/0.5 Ml, 12yr+ 07/17/2023 Moderna COVID-19 Vaccine, re d cap blue label, 12+ Primary Series 12/08/2021,09/02/2020,08/01/2020 PPD 03/25/2023 TDAP 09/17/2018 Social History Tobacco Use Types Packs/Day Years Used Date Smoking Tobacco: Never Smokeless Tobacco: Never Alcohol Use Standard Drinks/Week Comments Never 0 (1 standard drink = 0.6 oz pur e alcohol) Social Connections Answer Date Recorded Connectedness 0 03/25/2024 Financial Resource Strain Answer Date R ecorded Financial Resource Strain 0 2018 Stress Answer Date Recorded Stress 0 02/28/2019 Physical Activity Answer Date Recorded Physical Activity 0 02/28/2019 Food Insecurity Answer Date Recorded Food 0 04/02/2024 Transportation Needs Answer Date Record ed Transportation 0 02/28/2019 Housing Stability Answer Date Recorded Housing 0 02/28/2019 Safety and Environment Answer Date Thong rded Safety 0 02/28/2019 Utilities Answer Date Recorded Utilities 0 02/28/2019 Employment Answer Date Recorded Stress 0 03/25/2024 Comments Unknown Sex and Gender Information Value Date Recorded Sex Assigned at Female 04/08/2019 6:22 AM PDT Legal Sex Female 11:36 AM PDT Gender Identity Female 04/08/2019 6:22 AM PDT Sexual Orientation Straight 04/08/2019 6: 22 AM PDT Last Filed Vital Signs Vital Sign Reading Time Taken Comments Blood Pressure 127/78 03/25/2024 8:56 AM EDT Pulse 86 03/25/2024 8:56 AM EDT Temperature 37.8 ??C (100 ??F) 04/08/2019 9:20 AM EDT Respiratory Rate 16 04/08/2019 9:20 AM EDT Oxygen Saturation 100% 02/06/2016 9:18 AM EDT room air Inhaled Oxygen Concentration - - Weight 110.2 kg (243 lb) 04/08/2019 9:20 AM EDT Height 167.6 cm (5' 6 ) 04/08/2019 9:20 AM EDT Body Mass Index 39.22 04/08/2019 9:20 AM EDT Plan of Treatment Upcoming Encounters Date Type Department Care Team (Late st Contact Info) Description 10/22/2024 9:00 AM EDT Office Visit [facility] [address] [place] [id number] Anton Enrique, DDS [address] [place] [address] Health Maintenance Due Date Last Done Comments Dental FMX/Pano 1983 Diabetes Screening 1983 HPV Screening 1983 Hepatitis C Screening 1983 Lipid Screening 1983 Pap + HPV 1983 HIV Screening 1998 Relationship Safety Screening/Counseling 1998 Imm-Hepatitis B (1 of 3 - 19 + 3-dose series) 2002 Imm-Pneumococcal (1 of 2 - PCV) 2002 Cervical Cancer Screening 02/16/2004 Pap Smear 02/16/2004 Breast Cancer Screening (Mammogram) 2023 [id number] ( season) 2024 07/17/2023, 12/08/2021, 09/02/2020, Additional history exists Dental Perio Charting 06/13/2024 06/11/2023 Alcohol and Drug Screen 07/08/2024 Depression Annual Screen 07/08/2024 Tobacco Screening 01/21/2025 01/22/2024 Dental BW 01/31/2025 01/30/2024, 06/11/2023 Dental Examination 01/31/2025 01/30/2024, 06/11/2023 Dental Prophy 01/31/2025 01/30/2024, 06/11/2023 Hypertension Screening (#1) 03/25/2025 Imm-DTaP/Tdap/Td (3 - Td or Tdap) 09/17/2028 09/17/2018, 09/17/2018, 02/11/2017 Imm-Influenza Completed 03/30/2024, 03/08, 04/04/2022, Additional history exists Cervical Ablation/Cold-Knife Conization Discontinued Cervical Cryotherapy Discontinued Colposcopy Discontinued Endometrial Biopsy Discontinued Excision/Leep Discontinued HPV Genotyping Discontinued Vaginal Pap Discontinued Vulvoscopy Discontinued Procedures Procedure Name Priority Date/Time Associated Diagnosis Comments BITEWINGS - FOUR RADIOGRAPHIC IMAGES Routine 01/30/2024 10:20 AM EDT Encounter for dental examination and cleaning without abnormal findings PROPHYLAXIS - ADULT Routine 01/30/2024 1 0:20 AM EDT Encounter for dental examination and cleaning without abnormal findings PERIODIC ORAL EVALUATION ESTABLISHED PATIENT Routine 01/30/2024 10:20 AM EDT Encounter for dental examination and cleaning without abnormal findings COMP PERIODONTAL EVALUATION - NEW/EST PATIENT Routine 06/11/2023 9:00 AM EST Caries Caries of enamel (incipient) from Last 3 Months or Most Recently Relevant to Health Maintenance Insurance [employer] [place] [address] [place] [address]) Member Subscriber Plan / Payer (Ef fective 2016-Present) Name:Yesy Ordaz Relation to Subscriber:Self Name:OrlinYesy Payer ID:[id number] Group ID:Not on file Type:[employer] Address: [address] [place] [address] [place] Care Teams Veneer Sheet Repairer Relationship Specialty Start Date End Date Billie Moreno DMD [address] [place] [address] [facility] - General 09/16/20
--- OUTSIDE RECORDS SUMMARY | 2024-09-15 10:41 | XMS_ITS | Clinical Summary ---
Author Organization [facility] it Address [address] [place] [address] Care Team Providers Care Delivery Consultant Name Role Phone Nahed Rogers MD Primary Care Provider [phone] Social History Tobacco Use Types Packs/Day Years Used Date Smoking Tobacco: Never Assessed Comments Unknown Sex and Gender Information Value Date Recorded Sex Assigned at Not on file Legal Sex Female 11:37 PM EST Gender Identity Not on file Sexual Orientation Not on file Plan of Treatment Health Maintenance Due Date Last Done Comments Breast Cancer Screening 1983 DTaP,Tdap,and Td Vaccines (1 - Tdap) 2002 Hepatitis B Vaccines (1 of 3 - 19+ 3-dose series) 2002 Cervical Cancer Screening: P ap Smear 02/16/2004 HIV Screening 06/10/2022 COVID-19 Vaccine (2023-2 5 season) 2024 Influenza Vaccine (#1) 2024 HIB Vaccines Aged Out No longer eligi ble based on patient's age to complete this topic HPV Vaccines Aged Out No longer eligi ble based on patient's age to complete this topic Hepatitis A Vaccines Aged Out No long er eligible based on patient's age to complete this topic IPV Vaccines Aged Out No longer eligi ble based on patient's age to complete this topic MMR Vaccines Aged Out No longer eligi ble based on patient's age to complete this topic Meningococcal ACWY Vaccine Aged Out N o longer eligible based on patient's age to complete this topic Meningococcal B Vacine Aged Out No lo nger eligible based on patient's age to complete this topic Pneumococcal Vaccine: Pediat rics (0 to 5 Years) and At-Risk Patients (6 to 64 Years) Aged Out No longer eligible b ased on patient's age to complete this topic RSV Immunization Patients Un brynn 20 months Aged Out No longer eligible b ased on patient's age to complete this topic Varicella Vaccines Aged Out No longer eligible based on patient's age to complete this topic Care Teams Delivery Consultant Relationship Specialty Start Date End Date Nahed Rogers MD [address] [place] [address] PCP - General Internal Medicine 10/06/20
== END 2024-09-15 10:06 | disposition home or self-care (01) ==
LOC: HO.HBS 09:29
PROVIDERS: PCP Internal Medicine; Visit Provider Physician Assistant Surgical
DX: L98.7 Excessive and redundant skin and subcutaneous tissue (principal); Z98.84 Bariatric surgery status
CPT/HCPCS: 99214

== ENCOUNTER 2024-10-30 11:22 | Outpatient (AMB) | payer OTHER, SELFPAY ==
--- NOTE | 2024-10-30 10:47 | MHC.OFFVISWM ---
VS Expanded 10/30/24 10:49 Height 5 ft 5 in Weight 183 lb BMI 30.4 Body Fat % 28.3 Fat Free Mass 131.2 Visceral Fat Rating 13 Body Water % 51.8 Muscle Mass/Score 124.6 Basal Metabolic Rate/Score 1,655 Intake Visit Reasons: (TV) PO LSG 05/05/20 Allergies Sulfa Allergy (Mild, Uncoded 05/13/20 10:14) itching HPI Comments Details: This?a?39?yo female who is s/p LSG without hiatal hernia repair on?05/05/2020. Presents for 4 year 6 month post op visit. She was last seen in the office about 1 month ago, prior to that she had not been seen for several years. Weight today is 183 pounds, with a BMI of 30.5. She has lost 6.6 lb since reestablishing with the office on 09/15/2024. There has been a 71.2 pound weight loss,(initial weight 254.2 pounds) since starting the program in 06/26/2019 reflecting a 28 % total body weight loss and a weight loss of 45.3 pounds since surgery (operative weight 228.3 pounds) reflecting a 19.8% TBWL since surgery. No complaints of nausea, emesis, abdominal pain or reflux. Reports infrequent but normal bowel movements every 2 days and uses fiber regularly. She states that she has been using the right bmi hussein. She does report getting an intermittent rash to the periumbilical area as well as under the abdominal pannus, above the pubic area. She has treated this with increased hygiene such as showering, barriers with clothing. The rash, when it does occur, causes pain and itching and odor. This is very difficult for her and she is upset by this. We will prescribe antifungal cream to be used as needed. She does state that she would have a rash more commonly in the warmer months or if she visits friends and family in [place] as it is much warmer there. She states that she would get a rash perhaps 1-2 times per month with resolution in between however recurrence. Present meal plan includes: Premier protein 1/2 scoop w 8 oz almond milk at 730-930 premier protein bar at 7325-7286, 1230-230 meal at 6 pm 10 forks of protein, 10 forks rice or 10 forks veg premier protein bar at 8-10 32 oz water, ? Exercise routine includes: [employer] 15 min exercise 3 x per week. walk outside, not tracking calories could join a gym, had membership [facility] Medical History Knee pain GERD (gastroesophageal reflux disease) Steatosis, liver Anemia Prediabetes Surgical History S/P laparoscopic sleeve gastrectomy Obesity H/O removal of cyst Hx of section Family History Father No problems noted. Mother HTN (hypertension) Anemia Brother No problems noted. Sister No problems noted. Sister No problems noted. Daughter No problems noted. Daughter No problems noted. 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 Do you presently have visiting nurse or other home services: No Alcohol intake: never Patient Tobacco Use Status: Never used Tobacco Second Hand Smoke Exposure: No service: No Current occupational status: employed Telehealth Telehealth Telehealth Platform: Telephone Location of provider rendering services: practice address Location of patient: address on file Patient Identification confirmed using: Name, : Yes Telehealth method: voice only Patient verbally consented to treatment: Yes Patient verbally consented to billing insurance company: Yes Patient informed of any privacy concerns related to visit: Yes Minutes spent on Phone/Video with Pt.: 15 Assessment & Plan Assessment & Plan (1) S/P laparoscopic sleeve gastrectomy: Comment: 05/05/2020 Code(s): Z98.84 - Bariatric surgery status Category: Surgical Plan: Patient has started using the right BMI hussein. She has lost 6.6 lb. However she was not following it accurately. She was eating rice instead of vegetables, she was using 1 hole bar instead of 1/2 bar. Discussed the importance of reading the instructions very carefully. Additionally, discussed the importance of increasing her exercise. While 15 minutes 3 times a week is more than she had been doing, discussed how the goal is to reach 300 calories burned per day 7 days a week or 2000 calories per week. She will increase her exercise routines and track calories. We will have her return to the office in approximately 1 month. Encouraged to text weekly with any questions or concerns as well as sending in her weight measurements.
[2024-10-30 10:49] VITALS: BMI 30.4
--- OUTSIDE RECORDS SUMMARY | 2024-10-30 12:17 | XMS_ITS | Clinical Summary ---
Author Organization [facility] Address [address] [place] [phone] Care Team Providers Care Fans Clerk Name Role Phone Nahed Rogers MD Primary Care Provider [phone] Social History Tobacco Use Types Packs/Day Years [...] Cervical Cancer Screening: P ap Smear 02/16/2004 COVID-19 Vaccine (2023-2 5 season) 2024 Influenza Vaccine (Season Ended) 2025 HIB Vaccines Aged Out No longer eligi [...] age to complete this topic Meningococcal B Vaccine Aged Out No l onger eligible based on patient's age to complete [...] age to complete this topic Care Teams Fans Clerk Relationship Specialty Start Date End Date Nahed Rogers MD [address] [place] [address] PCP - General Internal Medicine 10/06/20
--- OUTSIDE RECORDS SUMMARY | 2024-10-30 12:17 | XMS_ITS | Clinical Summary ---
Author Organization [facility] Address [address] [place] [address] Care Team Providers Care Embossograph Operator Name Role Phone Billie Moreno DMD Primary Care Provider [phone] Source Comments PLEASE NOTE, if this patient [...] Active Active Problems No known active problems Encounters Date Type Department Care Team Description 10/22/2024 9:00 AM EDT Office Visit [facility] [address] [place] [phone] Anton Enrique DDS Encounter for dental examination (Primary Dx) from Last 3 Months Immunizations Immunization Administration Dates Next Due Flu, Preservative Free [...] Care Team (Late st Contact Info) Description 12/22/2024 9:00 AM EDT Office Visit [facility] [address] [place] [address] Anton Enrique, DDS [address] [place], [place] [phone] Health Maintenance Due Date Last Done Comments Anxiety Screening 1983 Dental FMX/Pano 1983 Diabetes Screening 1983 HPV Screening 1983 Hepatitis C Screening 1983 Lipid Screening 1983 Pap + HPV 1983 HIV Screening 1998 Relationship Safety Screening/Counseling 1998 Imm-Hepatitis B (1 of 3 - 19 + 3-dose series) 2002 Imm-Pneumococcal (1 of 2 - PCV) 2002 Cervical Cancer Screening 02/16/2004 Pap Smear 02/16/2004 Breast Cancer Screening (Mammogram) 2023 [id number] ( season) 2024 07/17/2023, 12/08/2021, 09/02/2020, Additional history exists Dental Perio Charting 06/13/2024 06/11/2023 Alcohol and Drug Screen 07/08/2024 Depression Annual Screen 07/08/2024 Dental BW 01/31/2025 01/30/2024, 06/11/2023 Dental Examination 01/31/2025 01/30/2024, 06/11/2023 Dental Prophy 01/31/2025 01/30/2024, 06/11/2023 Hypertension Screening (#1) 03/25/2025 Tobacco Screening 10/22/2025 10/22/2024 Imm-DTaP/Tdap/Td (3 - Td or Tdap) 09/17/2028 09/17/2018, 09/17/2018, 02/11/2017 Imm-Influenza Completed 03/30/2024, 03/08, 04/04/2022, Additional history exists Cervical Ablation/Cold-Knife Conization Discontinued Cervical Cryotherapy Discontinued Colposcopy Discontinued Endometrial Biopsy Discontinued Excision/Leep Discontinued HPV Genotyping Discontinued Vaginal Pap Discontinued Vulvoscopy Discontinued Procedures Procedure Name Priority Date/Time Associated Diagnosis Comments 5 CROWN IN PROGRESS Routine 10/22/2024 9 :00 AM EDT Encounter for dental examination BITEWINGS - FOUR RADIOGRAPHIC IMAGES Routine 01/30/2024 [...] to Health Maintenance Insurance BCBS D[place] OF [place] Member Subscriber Plan / Payer (Ef fective 2016-Present) Name:Yesy Ordaz Relation to Subscriber:Self Name:Yesy Ordaz Payer ID:[id number] Group ID:Not on file Type:Bizdom Address: [facility] [id number] [address]) Member Subscriber Plan / Payer (Ef fective 2016-Present) Name:Yesy Ordaz Relation to Subscriber:Self Name:Yesy Ordaz Payer ID:[id number] Group ID:Not on file Type:[employer] Address: [address] [place] [address] MEDICAID DENTAL Care Teams Embossograph Operator Relationship Specialty Start Date End Date Billie Moreno DMD [address] [place] [address] PCP - General 09/16/20
== END 2024-10-30 11:23 | disposition home or self-care (01) ==
LOC: HO.HBS 11:22
PROVIDERS: PCP Internal Medicine; Visit Provider Physician Assistant Surgical
DX: E66.9 Obesity, unspecified (principal); E66.811 Obesity, class 1; Z68.30 Body mass index [BMI] 30.0-30.9, adult; Z98.84 Bariatric surgery status
CPT/HCPCS: 98012

== ENCOUNTER 2024-12-02 14:56 | Outpatient (AMB) | payer OTHER, SELFPAY ==
--- NOTE | 2024-12-01 10:50 | MHC.OFFVISWM ---
VS Expanded 12/02/24 12:29 Height 5 ft 5 in Weight 179 lb 6 oz BMI 29.8 Body Fat % 27.4 Fat Free Mass 130.2 Visceral Fat Rating 12 Body Water % 52.4 Muscle Mass/Score 123.8 Basal Metabolic Rate/Score 1,647 Intake Visit Reasons: (TV) PO LSG 05/05/20 Vibrating Screen Operator Required: No Allergies Sulfa Allergy (Mild, Uncoded 05/13/20 10:14) itching Medication List - Last Reconciled 12/02/24 by MAGNOLIA Araujo clotrimazole 1% (Antifungal (clotrimazole)) 1 appl topical BID HPI Comments Details: This?a?39?yo female who is s/p LSG without hiatal hernia repair on?05/05/2020. Presents for 4 year 7 month post op visit. She was last seen in the office about 1 month ago, prior to that she had not been seen for several years. Weight today is 179.6 pounds, with a BMI of 29.8. She has lost 10 lb since reestablishing with the office on 09/15/2024. There has been a 74.6 pound weight loss,(initial weight 254.2 pounds) since starting the program in 06/26/2019 reflecting a 29.3 % total body weight loss and a weight loss of 48.7 pounds since surgery (operative weight 228.3 pounds) reflecting a 21.3% TBWL since surgery. She has lost 3.4 lb since her last appointment. No complaints of nausea, emesis, abdominal pain or reflux. Reports infrequent but normal bowel movements every 2 days and uses fiber regularly. She states that she has been using the right bmi hussein. She does report getting an intermittent rash to the periumbilical area as well as under the abdominal pannus, above the pubic area. She has treated this with increased hygiene such as showering, barriers with clothing. The rash, when it does occur, causes pain and itching and odor. This is very difficult for her and she is upset by this. We will prescribe antifungal cream to be used as needed. She does state that she would have a rash more commonly in the warmer months or if she visits friends and family in [place] as it is much warmer there. She states that she would get a rash perhaps 1-2 times per month with resolution in between however recurrence. Present meal plan includes: Premier protein 1/2 scoop w 8 oz almond milk at 730-930 premier protein bar at 2666-2706, 1230-230 meal at 6 pm 10 forks of protein, 10 forks veg premier protein bar at 8-10 32 oz water, ? Exercise routine includes: [employer] 15 min exercise 3 x per week. walk outside, 4 days per week, [facility] Medical History Knee pain GERD (gastroesophageal reflux disease) Steatosis, liver Anemia Prediabetes Surgical History S/P laparoscopic sleeve gastrectomy Obesity H/O removal of cyst Hx of section Family History Father No problems noted. Mother HTN (hypertension) Anemia Brother No problems noted. Sister No problems noted. Sister No problems noted. Daughter No problems noted. Daughter No problems noted. Social History Are you a primary client care representative to a significant other at home: Yes Do you presently have visiting nurse or other home services: No Alcohol intake: never Patient Tobacco Use Status: Never used Tobacco Second Hand Smoke Exposure: No service: No Current occupational status: employed Physical Exam Vital Signs: BMI result Body Mass Index 29.8 Telehealth Telehealth Telehealth Platform: Telephone Location of provider rendering services: practice address Location of patient: other Patient Identification confirmed using: Name, : Yes Telehealth method: voice only Patient verbally consented to treatment: Yes Patient verbally consented to billing insurance company: Yes Patient informed of any privacy concerns related to visit: Yes Minutes spent on Phone/Video with Pt.: 10 Assessment & Plan Assessment & Plan (1) S/P laparoscopic sleeve gastrectomy: Comment: 05/05/2020 Code(s): Z98.84 - Bariatric surgery status Category: Surgical Plan: Pt was not exercising as much and had a birthday alliance party and went off plan. She recognizes the issues and will try harder. Discussed re-entering her weight in the right bmi hussein to reset her meal plan in another 4-5 pound loss. Encouraged to text weight weekly and will have her rtc in 6 weeks.
[2024-12-02 12:29] VITALS: BMI 29.8
--- OUTSIDE RECORDS SUMMARY | 2024-12-02 15:42 | XMS_ITS | Clinical Summary ---
Author Organization [facility] Address [address] [place] [address] Care Team Providers Care Probe Operator Name Role Phone Billie Moreno DMD Primary Care Provider [phone] Source Comments PLEASE NOTE, if this patient [...] Encounters Date Type Department Care Team Description 11/02/2024 9:00 AM EDT Office Visit [facility] [address] [place] [address] Anton Enrique DDS Irreversible pulpitis (Primary Dx) 10/22/2024 9:00 AM EDT Office Visit [facility] [address] [place] [address] Anton Enrique DDS Encounter for dental examination [...] Description 12/22/2024 9:00 AM EDT Office Visit [facility] [address] [place] [phone] Anton Enrique, DDS [address] [place], [place] [phone] 01/14/2025 9:00 AM EDT Office Visit [facility] [address] [place] [phone] Liborio Ventura, RD [address] [place], [place] [phone] Health Maintenance Due Date Last Done Comments [...] Smear 02/16/2004 Breast Cancer Screening (Mammogram) 2023 [id number] ( season) 2024 07/17/2023, 12/08/2021, 09/02/2020, Additional [...] Priority Date/Time Associated Diagnosis Comments 5 CROWN - PORCELAIN/CERAMIC Routine 11/02/2024 9:00 AM EDT Irreversible pulpitis 5 ROOT CANAL - WISDOM (NO BILLABLE) Routine 11/02/2024 12:00 AM EDT 5 CROWN IN PROGRESS Routine 10/22/2024 9 [...] to Health Maintenance Insurance BCBS D[place] OF [place] [facility] Member Subscriber Plan / Payer (Ef fective 2016-Present) Name:Yesy Ordaz Relation to Subscriber:Self Name:Yesy Ordaz Payer ID:[id number] Group ID:Not on file Type:[employer] Address: [address] [address] [place] MEDICAID DENTAL Care Teams Probe Operator Relationship Specialty Start Date End Date Billie Moreno DMD [address] [place] [address] PCP - General 09/16/20
== END 2024-12-02 14:57 | disposition home or self-care (01) ==
LOC: HO.HBS 14:56
PROVIDERS: PCP Internal Medicine; Visit Provider Physician Assistant Surgical
DX: E66.3 Overweight (principal); Z68.29 Body mass index [BMI] 29.0-29.9, adult; Z90.3 Acquired absence of stomach [part of]; Z98.84 Bariatric surgery status
CPT/HCPCS: 98012

== ENCOUNTER 2025-01-15 13:59 | Outpatient (AMB) | payer OTHER, SELFPAY ==
--- OUTSIDE RECORDS SUMMARY | 2025-01-14 09:00 | XMS_ITS | Encounter Summary ---
Author Organization [facility] Address [address] [place] [address] Care Team Providers Care Wrapper Stemmer Operator Name Role Phone Billie Moreno DMD Primary Care Provider [phone] Encounter Details Date Type Department Care Team (Late st Contact Info) Description 01/14/2025 9:00 AM EDT Office Visit [facility] [address] [place] [phone] [place] [address] Social History Tobacco Use Types Packs/Day Years [...] Orientation Straight 04/08/2019 6: 22 AM PDT documented as of this encounter Progress Notes * Liborio Ventura RDH - 01/14/2025 11:12 AM EDT Prophy, 4 bwx, Exam - Adult Subjective Yesy Ordaz, 39 year old female, presents alone for Recall exam. Lithograph Designer: No No chief complaint on file. Objective RMHx: Yes Vitals: There were no vitals filed for this visit. Assessment EOE/IOE/Oral Cancer Screen: WNL OH: Good Fluoride exposure: toothpaste Home Care: Toothbrush 1 x per day, Floss 1 x per day Plaque: None Calculus: Localized Slight Bone Loss: None PSR: Yes Periodontal Screening OHI & Nutrition counseling provided, discussed: Gingivitis Occlusion: N/A. Class I R & L. Overbite WNL. Overjet WNL. TMJ: WNL Caries Risk Assessment: Auto calculated Risk Score: moderate risk Dx: Z01.20 Encounter for dental examination (primary encounter diagnosis) Dx Details (Clinical Decision Making): Plan No restorative needed Informed Consent/PARQ (Procedure, Alternatives, Risks, Questions): Discussed exam findings and treatment needs, questions answered. Patient confirms informed consent using PARQ, verbalizes understanding of exam findings and treatment plan. Dental procedures in this visit D9450 - CASE PRESENTATION SUBS DTL & EXTENSIVE TX PLN (Completed) Service provider: Liborio Ventura RDH Billing provider: Aylin Miranda DDS TX993 - ORAL CANCER SCREENING (Completed) Service provider: Liborio Ventura RDH Billing provider: Aylin Miranda DDS D1330 - ORAL HYGIENE INSTRUCTIONS (Completed) Service provider: Liborio Ventura RDH Billing provider: Aylin Miranda DDS D1310 - NUTRITIONAL COUNSELING CONTROL OF DENTAL DISEASE (Completed) Service provider: Liborio Ventura RDH Billing provider: Aylin Miranda DDS D0602 - CARIES RISK ASSESSMENT & DOC FINDING MOD RISK (Completed) Service provider: Liborio Ventura RDH Billing provider: Aylin Miranda DDS D0120 - PERIODIC ORAL EVALUATION ESTABLISHED PATIENT (Completed) Service provider: Liborio Ventura RDH Billing provider: Aylin Miranda DDS D0180 - COMP PERIODONTAL EVALUATION - NEW/EST PATIENT (Completed) Service provider: Liborio Ventura RDH Billing provider: Aylin Miranda DDS D0274 - BITEWINGS - FOUR RADIOGRAPHIC IMAGES (Completed) Service provider: Liborio Ventura RDH Billing provider: Aylin Miranda DDS D1110 - PROPHYLAXIS - ADULT (Completed) Service provider: Liborio Ventura RDH Billing provider: Aylin Miranda DDS D9993 - DENTAL CASE MANAGEMENT - MOTIVATIONAL INTV (Completed) Service provider: Liborio Ventura RDH Billing provider: Aylin Miranda DDS Referrals: No orders of the following type(s) were placed in this encounter: Referral. Rx: No orders of the defined types were placed in this encounter. Behavior: Excellent Prophy completed via ultrasonic, handscale, occitan and floss NV: Recall Exam - 6 months Liborio Ventura RDH documented in this encounter Plan of Treatment Upcoming Encounters Date Type Department Care Team (Late st Contact Info) Description 07/19/2025 9:00 AM EST Office Visit [facility] [address] [place] [address] Liborio Ventura RDH [address] [place] [address] documented as of this encounter Procedures Procedure Name Priority Date/Time Associated Diagnosis Comments ORAL CANCER SCREENING Routine 01/14/2025 9:00 AM EDT Encounter for dental examination DENTAL CASE MANAGEMENT - MOTIVATIONAL INTV Routine 01/14/2025 9:00 AM EDT Encounter for dental examination CARIES RISK ASSESSMENT & DOC FINDING MOD RISK Routine 01/14/2025 9:00 AM EDT Encounter for dental examination CASE PRESENTATION SUBS DTL & EXTENSIVE TX PLN Routine 01/14/2025 9:00 AM EDT Encounter for dental examination COMP PERIODONTAL EVALUATION - NEW/EST PATIENT Routine 01/14/2025 9:00 AM EDT Encounter for dental examination ORAL HYGIENE INSTRUCTIONS Routine 01/14/2025 9:00 AM EDT Encounter for dental examination NUTRITIONAL COUNSELING CONTROL OF DENTAL DISEASE Routine 01/14/2025 9:00 AM EDT Encounter for dental examination PROPHYLAXIS - ADULT Routine 01/14/2025 9 :00 AM EDT Encounter for dental examination BITEWINGS - FOUR RADIOGRAPHIC IMAGES Routine 01/14/2025 9:00 AM EDT Encounter for dental examination PERIODIC ORAL EVALUATION ESTABLISHED PATIENT Routine 01/14/2025 9:00 AM EDT Encounter for dental examination documented in this encounter Visit Diagnoses Diagnosis Encounter for dental examination- Primary Dental examination documented in this encounter Care Teams Wrapper Stemmer Operator Relationship Specialty Start Date End Date Billie Moreno DMD [address] [place] [address] PCP - General 09/16/20 documented as of this encounter
--- NOTE | 2025-01-15 09:20 | A.OFFVIS_ITS ---
VS Expanded 01/15/25 09:21 Height 5 ft 5 in Weight 171 lb 2 oz BMI 28.5 Body Fat % 25.2 Fat Free Mass 127.8 Visceral Fat Rating 11 Body Water % 53.9 Muscle Mass/Score 121.4 Basal Metabolic Rate/Score 1,622 Intake Visit Reasons: (TV) PO LSG 05/05/20 Allergies Sulfa Allergy (Mild, Uncoded 05/13/20 10:14) itching HPI Comments Details: This?a?39?yo female who is s/p LSG without hiatal hernia repair on?05/05/2020. Presents for 4 year 9 month post op visit. She was last seen in the office about 1 month ago, prior to that she had not been seen for several years. Weight today is 171.2 pounds, with a BMI of 28.5. There has been a 83 pound weight loss,(initial weight 254.2 pounds) since starting the program in 06/26/2019 reflecting a 32.6 % total body weight loss and a weight loss of 57.1 pounds since surgery (operative weight 228.3 pounds) reflecting a 25% TBWL since surgery. No complaints of nausea, emesis, abdominal pain or reflux. Reports infrequent but normal bowel movements every 2 days and uses fiber regularly. She states that she has been using the right bmi hussein. She does report getting an intermittent rash to the periumbilical area as well as under the abdominal pannus, above the pubic area. She has treated this with increased hygiene such as showering, barriers with clothing. The rash, when it does occur, causes pain and itching and odor. This is very difficult for her and she is upset by this. We have prescribed antifungal cream to be used as needed. She does state that she would have a rash more commonly in the warmer months or if she visits friends and family in [place] as it is much warmer there. She states that she would get a rash perhaps 1-2 times per month with resolution in between however recurrence. Present meal plan includes: Premier protein 1/2 scoop w 8 oz oat milk at 730-930 pure protein bar at 0705-4640, 1230-230 meal at 6 pm 10 forks of protein, 10 forks veg premier protein 1/2 scoop in 8 oz oat milk at 8-10 40-50 oz water, ? Exercise routine includes: walk outside, 4 days per week, 300 calories PFSH Medical History Knee pain GERD (gastroesophageal reflux disease) Steatosis, liver Anemia Prediabetes Surgical History S/P laparoscopic sleeve gastrectomy Obesity H/O removal of cyst Hx of section Family History Father No problems noted. Mother HTN (hypertension) Anemia Brother No problems noted. Sister No problems noted. Sister No problems noted. Daughter No problems noted. Daughter No problems noted. Social History Are you a primary manager primary care to a significant other at home: Yes Do you presently have visiting nurse or other home services: No Alcohol intake: never Patient Tobacco Use Status: Never used Tobacco Second Hand Smoke Exposure: No service: No Current occupational status: employed Telehealth Telehealth Telehealth Platform: Telephone Location of provider rendering services: practice address Location of patient: address on file Patient Identification confirmed using: Name, : Yes Telehealth method: voice only Patient verbally consented to treatment: Yes Patient verbally consented to billing insurance company: Yes Patient informed of any privacy concerns related to visit: Yes Minutes spent on Phone/Video with Pt.: 15 Assessment & Plan Assessment & Plan (1) S/P laparoscopic sleeve gastrectomy: Comment: 05/05/2020 Code(s): Z98.84 - Bariatric surgery status Category: Surgical Plan: Patient had to change phones and subsequently no longer has the right BMI hussein. she was given information regarding this again. In the meantime we will adjust her meal plan as follows: Premier protein 1/2 scoop w 8 oz oat milk at 730-930 pure protein bar at 1130-130 meal at 6 pm 10 forks of protein, 10 forks veg premier protein 1/2 scoop in 8 oz oat milk at 8-10 Encouraged to increase exercise to goal of 2000 calories burned per week. She states that she wakes up at 3 in the morning and is feeling hungry. She has been under increased stress lately with school. She will consider incorporating yoga prior to bed as a meditate of practice. We will have her follow-up in the office in approximately 1 month
[2025-01-15 09:21] VITALS: BMI 28.5
--- OUTSIDE RECORDS SUMMARY | 2025-01-15 14:04 | XMS_ITS | Clinical Summary ---
Author Organization [facility] it Address [id number] [place] [id number] Care Team Providers Care Molecular Biology Professor Name Role Phone Nahed Rogers MD Primary Care Provider [phone] Social History Tobacco Use Types Packs/Day Years [...] (2023-2 5 season) 2024 Influenza Vaccine (#1) 2025 HIB Vaccines Aged Out No longer [...] 5 Years) and At-Risk Patients (6 to 49 Years) Aged Out No longer eligible b ased on patient's age to complete this topic RSV Immunization Patients Un brynn 20 months Aged Out No longer eligible b ased on patient's age to complete this topic Varicella Vaccines Aged Out No longer eligible based on patient's age to complete this topic Care Teams Molecular Biology Professor Relationship Specialty Start Date End Date Nahed Rogers MD [address] [place] [id number] PCP - General Internal Medicine 10/06/20
== END 2025-01-15 14:19 | disposition home or self-care (01) ==
LOC: HO.HBS 13:59
PROVIDERS: PCP Internal Medicine; Visit Provider Physician Assistant Surgical
DX: E66.3 Overweight (principal); Z68.28 Body mass index [BMI] 28.0-28.9, adult; Z90.3 Acquired absence of stomach [part of]; Z98.84 Bariatric surgery status
CPT/HCPCS: 98013